=== PATIENT | female | born 1995 | race Caucasian/White ===

== ENCOUNTER 2019-08-27 16:54 | Emergency (ER) | payer OTHER ==
[2019-08-27 17:10] VITALS: BP 150/89
--- NOTE | 2019-08-27 17:16 | UC ---
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 No loc (fall was witnessed) but does not recall event. C/o pain back of head, and headache that hasn't gone away. Some difficulty concentrating, possible memory. But not sure b/c her hours recently have been switched to nights. No neck pain. No sob /cp No vis / aud changes No sz hx No p/d/w No recent fever / chills. LMP x 1 month, reports timely not . - History of Current Complaint Chief Complaint: UCHeadInjury Stated Complaint: HEAD INJURY Time Seen by Provider: 08/27/19 17:04 Hx Obtained From: Patient Hx Last Menstrual Period: 08/07/19 Pain Intensity: 6 - Allergy/Home Medications Allergies/Adverse Reactions: Allergies Allergy/AdvReac Type Severity Reaction Status Date / Time No Known Allergies Allergy Unverified 08/27/19 17:10 Home Medications: Home Medications Norgestimate-Ethinyl Estradiol [Ortho Tri-Cyclen Lo] 1 tab PO DAILY #1 aundrea 12/26 [Clinic Confirmed 08/27/19] PMH/Surg Hx/FS Hx/Imm Hx Previously Healthy: Yes - Surgical History Surgical History: Yes Surgery Procedure, Year, and Place: REMOVAL RIGHT URETER - AGE 7. [facility] - [place] [facility] [place] - Family History Known Family History: Positive: None - Social History Alcohol Use: Rare Substance Use Type: None Smoking Status (MU): Never Smoked Tobacco Review of Systems All Other Systems Reviewed And Are Negative: Yes Constitutional: Positive: Negative Skin: Positive: Negative Eyes: Positive: Negative ENT: Positive: Negative Respiratory: Positive: Negative Cardiovascular: Positive: Negative Gastrointestinal: Positive: Negative Genitourinary: Positive: Negative Motor: Positive: Negative Neurovascular: Positive: Negative Musculoskeletal: Positive: Negative Neurological/Mental Status: Positive: Headache Psychological: Positive: Negative Is Patient Immunocompromised?: No Physical Exam Triage Information Reviewed: Yes Appearance: Well-Appearing - sitting up, conversing easily. looks tired but nad , Well-Nourished Vital Signs: Initial Vital Signs Temp 98.2 F 08/27/19 17:05 Pulse 103 08/27/19 17:05 Resp 16 08/27/19 17:05 BP 150/89 08/27/19 17:05 Pulse Ox 99 08/27/19 17:05 Vital Signs Reviewed: Yes Eye Exam: Normal - perrla eomi no nystagmus noted fundi grossly benign(ND) ENT Exam: Normal Neck exam: Normal Neck: Positive: Supple, Nontender Respiratory Exam: Normal - RR normaly, no dyspnea, no tachypnea Cardiovascular Exam: Normal - HR normal, nondiaphoretic Abdominal Exam: Normal Abdomen Description: Positive: Nontender Musculoskeletal Exam: Normal - gait steady Musculoskeletal: Positive: Strength Intact, ROM Intact Neurological Exam: Normal - CN 1-12 intact, inclu + smell to alc pad Sharpened rhomberg bilat 15 sec (d/c'd by examiner) heel to toe forward and back ok Direct finger interrogation double at apprx 4 inch VF grossly intact FtNtF bilat nl, eyes open and closed Short term 3 word recall good FPC 3 word recall 1 (one) /3 Neurological: Positive: Alert Psychological Exam: Normal - nad Skin Exam: Other - no visible or reported rash. nondiaphoretic. Post head + laceration, intact, not bleeding. + eschar. + hematoma. No evidence cellulitis. Course/Dx - Course Course Of Treatment: CT brain noncont. nad Reviewed result with pt. s/sx concerning for concussion. encourage f/u pcp, she will call tomorrow to schedule appt Ms. 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 Has been having difficulty since since her fall. Recommend off work until next week. Reviewed coa / tx plan with pt. Questions as posed answered to the best of my ability. - Diagnoses Provider Diagnosis: Concussion, Head injury, Hematoma Discharge ED - Sign-Out/Discharge Documenting (check all that apply): Patient Departure All imaging exams completed and their final reports reviewed: Yes - Discharge Plan Condition: Stable Disposition: HOME Patient Education Materials: Concussion (ED), Head Injury (ED), Hematoma (ED) Forms: *Work Release Referrals: Maite Calabrese MD [Primary Care Provider] - Additional Instructions: Follow up with your primary care physician, this week if possible. Please seek medical attention for worse or new problems in the meantime. Do not drive or operate heavy machinery or drink alcohol until you are feeling back to normal. Hydrate. - Billing Disposition and Condition Condition: STABLE Disposition: Home
== END 2019-08-27 18:49 | disposition home or self-care (01) ==
LOC: UCEAST 16:54
DX: S06.0X0A Concussion without loss of consciousness, initial encounter (principal); S00.93XA Contusion of unspecified part of head, initial encounter; W18.09XA Striking against other object with subsequent fall, initial encounter; Y92.9 Unspecified place or not applicable
CPT/HCPCS: 70450; 99211; G0463

== ENCOUNTER 2022-12-14 10:33 | Observation (INO) ==
[2022-12-14] MEDS ORDERED: Ondansetron 4 mg VIAL 2 MG/ML 2 ml VIAL IV ONE (11:16)
[2022-12-14] MEDS ORDERED: NS 0.9% 1000 ml BAG 1,000 ML IV ONE (11:16)
[2022-12-14 12:44] LABS: ABS Basophils 0.1 10^3/uL (0.0-0.1); ABS Eosinophils 0.2 10^3/uL (0.0-0.5); ABS Lymphocytes 1.8 10^3/uL (1.0-4.8); ABS Monocytes 0.9 10^3/uL (0.0-0.9); ABS Neutrophils 13.7 10^3/uL (1.5-7.6); Hematocrit 32.2 % (35-45); Lymphocyte % 11.1 %; Mean Corpuscular Hemoglobin 28.8 pg (27-33); Mean Corpuscular Volume 84.7 fL (80-97); Mean Platelet Volume 7.6 fL (7.5-11.2); Platelet Count 335 10^3/uL (150-450); Red Blood Count 3.81 10^6/uL (3.63-4.92); Red Cell Distribution Width 14.2 % (12-17); White Blood Count 16.7 10^3/uL (3.8-11.8)
[2022-12-14] MEDS ORDERED: Morphine 4 MG/ML VIAL (1 ml) IV ONE (12:53)
[2022-12-14 13:04] LABS: Albumin 3.2 g/dL (3.2-5.2); Albumin/Globulin Ratio 0.9 (1-3); C Reactive Protein 16.34 mg/L (<8.01); Calcium 8.3 mg/dL (8.6-10.3); Creatinine, Serum 0.46 mg/dL (0.51-0.95); Globulin 3.4 g/dL (2-4); Magnesium 1.7 mg/dL (1.9-2.7); Potassium 3.7 mmol/L (3.5-5.0); Total Bilirubin 0.4 mg/dL (0.2-1.0); Total Protein 6.6 g/dL (6.4-8.9); eGFR CKD-EPI 136.1 (>60)
[2022-12-14] MEDS ORDERED: ceFOXitin 2 GM IVPREMIX 2 GM/50 ML BAG IVPB ONE (17:05)
[2022-12-14] MEDS ORDERED: HYDROmorphone 0.5 MG/0.5 ML SYRINGE IV SLOW PU PRN ×2 (17:17→21:09)
[2022-12-14] MEDS ORDERED: Ondansetron 4 mg VIAL 2 MG/ML 2 ml VIAL IV PRN ×2 (17:17→17:45)
[2022-12-14] MEDS ORDERED: Acetaminophen IV 1 GM/100ML 600 MG/60 ML BAG IV ONE ×2 (17:20→17:37)
[2022-12-14 17:32] LABS: Urine Appearance Cloudy; Urine Bilirubin Negative (Negative); Urine Blood Negative (Negative); Urine Color Yellow; Urine Glucose Negative (Negative); Urine Ketones 2+ (Negative); Urine Nitrite Negative (Negative); Urine Protein Negative (Negative); Urine Specific Gravity 1.015 (1.002-1.030); Urine Urobilinogen Negative (Negative)
[2022-12-14] MEDS ORDERED: Naloxone 0.4 mg VIAL 0.4 mg/ml 1 ml VIAL IV PRN (17:45)
[2022-12-14] MEDS ORDERED: fentaNYL 100 mcg/2 ml 50 MCG/ML VIAL IV PRN (17:45)
[2022-12-14] MEDS ORDERED: oxyCODONE/Acetamin 5/325 mg TAB PO PRN (17:45)
[2022-12-14] MEDS ORDERED: Lactated Ringers 1000 ml BAG 1,000 ML IV SCH ×2 (18:00→21:02)
[2022-12-14] MEDS ORDERED: Midazolam 2 mg/2 ml VIAL 1 mg/ml 2 ml VIAL (2 mg) ONE ×2 (19:09→20:26)
[2022-12-14] MEDS ORDERED: fentaNYL 100 mcg/2 ml 50 MCG/ML VIAL ONE ×2 (19:09→19:54)
[2022-12-14] MEDS ORDERED: Bupivacaine 0.5% W/EPI SDV 10 ML VIAL INJ ONE (19:35)
[2022-12-14] MEDS ORDERED: ceFOXitin 2 GM IVPREMIX 2 GM/50 ML BAG ONE (19:39)
[2022-12-14] MEDS ORDERED: Morphine 10 MG/ML VIAL (1 ml) ONE (20:13)
[2022-12-14] MEDS ORDERED: Calcium Carb (TUMS) 500 mg CHEW TAB PO PRN (21:09)
[2022-12-15] MEDS ORDERED: ceFOXitin 2 GM IVPREMIX 2 GM/50 ML BAG IVPB SCH (01:30)
[2022-12-15] MEDS ORDERED: Acetaminophen IV 1 GM/100ML 1,000 MG/100 ML BAG IV ONE (01:59)
[2022-12-15 06:00] LABS: ABS Basophils 0.1 10^3/uL (0.0-0.1); ABS Eosinophils 0.2 10^3/uL (0.0-0.5); ABS Lymphocytes 1.9 10^3/uL (1.0-4.8); ABS Monocytes 0.8 10^3/uL (0.0-0.9); ABS Neutrophils 10.8 10^3/uL (1.5-7.6); ABS Nucleated RBC 0.01 10^3/ul; Eosinophil % 1.4 %; Hematocrit 29.4 % (35-45); Hemoglobin 10.2 g/dL (11.5-14.3); Lymphocyte % 13.9 %; Mean Corpuscular Hemoglobin 29.3 pg (27-33); Mean Corpuscular Hgb Conc 34.7 g/dL (31-36); Mean Corpuscular Volume 84.6 fL (80-97); Mean Platelet Volume 7.8 fL (7.5-11.2); Nucleated Red Blood Cells % 0.1 /100 WBC (0.0-0.4); Platelet Count 312 10^3/uL (150-450); Red Blood Count 3.47 10^6/uL (3.63-4.92); Red Cell Distribution Width 14.1 % (12-17); White Blood Count 13.9 10^3/uL (3.8-11.8)
[2022-12-15 06:22] LABS: Calcium 8.1 mg/dL (8.6-10.3); Creatinine, Serum 0.43 mg/dL (0.51-0.95); Potassium 3.8 mmol/L (3.5-5.0); eGFR CKD-EPI 138.3 (>60)
[2022-12-15 11:23] VITALS: BP 102/70
== END 2022-12-15 11:10 | disposition home or self-care (01) ==
LOC: ED 10:33 → AA 10:33 → SSU 22:28
PROVIDERS: ADMIT Surgery; ATTEND Surgery